=== PATIENT | male | born 1960 | race African-American/Black ===

== ENCOUNTER 2024-04-29 01:56 | Emergency (ER) | payer OTHER | END 2024-04-29 06:35 | LOC: ERS 01:56 | DX: S70.02XA Contusion of left hip, initial encounter (principal); M16.12 Unilateral primary osteoarthritis, left hip; I11.0 Hypertensive heart disease with heart failure; I50.9 Heart failure, unspecified; E11.9 Type 2 diabetes mellitus without complications; W19.XXXA Unspecified fall, initial encounter; Y93.01 Activity, walking, marching and hiking; Z79.84 Long term (current) use of oral hypoglycemic drugs; Z79.82 Long term (current) use of aspirin; Z79.899 Other long term (current) drug therapy | CPT/HCPCS: 72170; 96374; J2270 ==